=== PATIENT | female | born 1990 ===

== ENCOUNTER 2016-03-03 20:14 | Emergency (ER) | payer OTHER, BC ==
[2016-03-03 21:09] LABS: URINE BILIRUBIN NEGATIVE (NEGATIVE); URINE BLOOD 4+ (NEGATIVE); URINE GLUCOSE (UA) 2+ (NEGATIVE); URINE NITRITE POSITIVE (NEGATIVE); URINE PROTEIN 2+ (NEGATIVE); URINE UROBILINOGEN NORMAL (0-1 mg/dl)
[2016-03-03 21:10] LABS: URINE APPEARANCE SL CLOUDY; URINE COLOR YELLOW; URINE LEUKOCYTE ESTERASE 2+ (NEGATIVE)
[2016-03-03 21:11] LABS: HCG,QUALITATIVE URINE NEGATIVE
[2016-03-03 21:40] LABS: ABSOLUTE NEUTROPHIL COUNT 10.5 K/mm3 (1.8-7.7); BASO % 0.1 % (0.2-1.0); EOS % 0.1 % (0.9-2.9); HEMATOCRIT 36.4 % (37.0-47.0); IMM NEUT # 0.1 K/mm3 (0-0.2); IMM NEUT% 0.6 % (0-1); LYMPH # 0.9 (1.0-4.8); LYMPH % 7.5 % (15-45); MEAN CELL VOLUME 87.5 fl (81.0-99.0); MEAN CORPUSCULAR HEMOGLOBIN 28.8 pg (27.0-31.0); MONO # 1.1 (0.0-0.8); MONO % 8.7 % (4-12); PLATELET COUNT 296 K/mm3 (130-400); RED CELL DISTRIBUTION WIDTH 12.4 % (11.5-14.5)
[2016-03-03] MEDS ORDERED: SODIUM CHLORIDE 0.9% 1,000 ML ONE (21:51)
[2016-03-03] MEDS ORDERED: CEFTRIAXONE 1 GRAM DUPLEX 0 ML IV ONE (21:51)
[2016-03-03] MEDS ORDERED: DIPHENHYDRAMINE HCL 50 MG/1 ML VIAL ONE (21:51)
[2016-03-03] MEDS ORDERED: MORPHINE SULFATE 4 MG/ML SYRINGE ONE (21:51)
[2016-03-03] MEDS ORDERED: PIPERACILLIN-TAZO PREMIX BAG 50 ML IV ONE (21:52)
[2016-03-03 21:55] LABS: ALB/GLOB RATIO 1.1 (>1.0); ALBUMIN 3.9 gm/dL (3.5-5.7); CALCIUM 9.4 mg/dL (8.6-10.3)
[2016-03-03 22:48] LABS: URINE BACTERIA 3+
[2016-03-03] MEDS ORDERED: ONDANSETRON 4 MG/2ML 2 ML VIAL ONE (23:18)
== END 2016-03-03 23:36 | disposition short-term general hospital (02) ==
LOC: ED 20:14
DX: N12 Tubulo-interstitial nephritis, not specified as acute or chronic (principal); Z94.0 Kidney transplant status
CPT/HCPCS: 83605; 83690; 81025; 85025; 87040 ×2; 87086; 80053; 87186; 81001; 87804; 96375 ×2; 99284; 96361; 96365; 99285; J1200; J2270; J2405; J2543; J7030